=== PATIENT | female | born 1985 | race Caucasian/White ===

== ENCOUNTER 2018-12-01 11:29 | Inpatient (IN) ==
--- NOTE | 2018-12-01 11:57 | Emergency Department Note ---
Disposition Clinical Impression: Tylenol overdose Qualifiers: Qualified Code(s): T39.1X1A - Disposition: Admitted As Inpatient Condition: Good Time of Disposition: 14:01 General Adult HPI - General Chief complaint: ED Overdose Stated complaint: OD Time Seen by Provider: 12/01/18 11:32 Source: patient, family, EMS Mode of arrival: EMS Limitations: no limitations Nursing Notes Reviewed: Yes Vital Signs Reviewed: Yes - History of Present Illness HPI Narrative: 33F with Pmhx of PTSD, anxiety, depression, substance use disorder, that developed body aches, headache, SOB, CP, left sided abdominal pain, numbness in her hands about a week ago, one episode of syncope yesterday due to lightheadedness, and fevers and chills over the past two days. She also reports taking 2-3 325mg tylenol every 2-3 hours over the last two days for pain. She is also complaining of chronic dental pain on the bottom of her teeth. Her mother at bedside reports in the hallway that she has a problem taking too much xanax, and once the xanax was cut off, she would take neurontin the same way, until her mother took her neurontin prescription away a month ago. [place] workup and treatment. Pain Scale: 6 - Related Data Home Medications Medication Instructions Recorded Confirmed Acetaminophen [Tylenol] 650 mg PO Q8H PRN 12/01/18 12/01/18 Budesonide/Formoterol 160/4.5 2 puff IH BIDR 12/01/18 12/01/18 [Symbicort 160/4.5] Cetirizine HCl [24Hour Allergy] 10 mg PO DAILY 12/01/18 12/01/18 Fluticasone Propionate Nasal 2 spr NS DAILY PRN 12/01/18 12/01/18 [Flonase] Gabapentin [Neurontin] 800 mg PO QID 12/01/18 12/01/18 Ibuprofen [Ibu] 400 mg PO TID PRN 12/01/18 12/01/18 Montelukast [Singulair] 10 mg PO HS 12/01/18 12/01/18 Pantoprazole Sodium [Protonix] 40 mg PO DAILY 12/01/18 12/01/18 Allergies Allergy/AdvReac Type Severity Reaction Status Date / Time No Known Allergies Allergy Verified 01/19/16 13:19 Constitutional: Reports: fever, chills Eyes: Reports: eye pain ENT ED: Reports: throat pain, dental pain, congestion Cardiovascular: Reports: chest pain, syncope Respiratory: Reports: cough, dyspnea Gastrointestinal: Reports: abdominal pain, nausea, diarrhea. Denies: vomiting, constipation Musculoskeletal: Reports: back pain, neck pain Integumentary: Reports: rash, abrasion Neurological: Reports: headache, weakness, numbness, paresthesias Psychiatric: Reports: anxiety, depression Endocrine: Reports: fatigue Past Medical History - Past Medical History Attestation: Yes The following information was validated with the patient. Medical history: Reports: TIA Psychiatric history: Reports: anxiety, depression, PTSD - Social History Smoking Status: Current every day smoker Alcohol use: Reports: none Drug use: Reports: marijuana Physical Exam - General Limitations: no limitations General appearance: alert, lethargic - Head Head exam: atraumatic, normocephalic - Eye Eye exam: Present: normal appearance, PERRL, EOMI. Absent: scleral icterus, conjunctival injection - ENT ENT exam: mucous membranes moist - Neck Neck exam: Present: normal inspection, full ROM, trachea midline. Absent: lymp hadenopathy - Chest Chest inspection: Present: normal inspection, symmetric chest wall rise - Respiratory Respiratory exam: Present: normal lung sounds bilaterally. Absent: respiratory distress, wheezes - Cardiovascular Cardiovascular exam: Present: regular rate, normal rhythm - Abdominal Exam Abdominal exam: Present: soft, tenderness Abdominal tenderness: Present: LUQ, LLQ, epigastrium - Extremities Exam Extremities exam: Present: normal inspection, full ROM. Absent: pedal edema - Psychiatric Psychiatric exam: Present: depressed, flat affect - Skin Skin exam: Present: warm, dry, other (multiple small abrasions present diffusely over her extremities, several linear scars present that are well healed) Course Vital Signs Temperature 98.5 F 12/01/18 11:39 Pulse Rate 64 12/01/18 11:39 Respiratory Rate 14 12/01/18 11:39 Blood Pressure 139/88 12/01/18 11:39 O2 Sat by Pulse Oximetry 100 12/01/18 11:39 Temperature 98.2 F 12/01/18 19:13 Pulse Rate 79 12/01/18 19:13 Respiratory Rate 15 12/01/18 19:13 Blood Pressure 121/77 12/01/18 19:13 O2 Sat by Pulse Oximetry 99 12/01/18 20:56 Oxygen Delivery Oxygen Delivery Room Air Medical Decision Making - MDM Narrative Medical decision making narrative: 33F with concern for overall body aches, fevers/chills, headache, and large tylenol ingestion over the past two days. Mother reports hx of substance use disorder and concern for her over-all well being. Will consult poison control, obtain tylenol/acetaminophen/salicylate level. 1202: Spoke with Sabina from Poison Control and they recommended getting a tylenol level and LFTs and that if she has any tylenol level that we may have to treat if she cannot come up with a timeline. 1345: Labs back and speaking with Sabina from poison control and she reports that because her level is 40 that they would initiated treatment with NAC for the next 21 hours. They are faxing the treatment protocol but she reports that 1-2 hours before the 3rd bag is done to repeat the LFTs and tylenol level and if normal, can stop NAC at that point. Will initiate treatment and admit to hosptialist. Pt was admitted to hospitalist, Dr. Wiley, who agreed to accept the patient to her service. Pt was stable at time of disposition. - Medical Records Medical records reviewed: Yes I reviewed the patient's medical records. - Lab Data Lab results reviewed: Yes I reviewed the patient's lab results. Result diagrams: 12/01/18 11:59 12/01/18 11:59 Lab Results 12/01/18 12/01/18 12/01/18 Range/Units 11:59 11:59 11:59 WBC 8.0 (4.3-11.1) K/mcL RBC 4.29 (3.82-4.97) M/mcL Hgb 12.4 (11.5-15.4) g/dL Hct 36.0 (35.3-44.9) % MCV 83.9 (83.0-100.0) fL MCH 28.9 (28.0-33.3) pg MCHC 34.4 (31.6-35.5) g/dL RDW 12.1 (11.5-14.5) % Plt Count 329 (140-400) K/mcL MPV 10.3 (9.4-12.4) fL Immature Gran % 0.3 (0-4) % Seg Neutrophils % 52.7 % Lymphocytes % 34.0 % Monocytes % 8.9 % Eosinophils % 3.1 % Basophils % 1.0 % Neutrophils # 4.2 (1.6-8.9) K/mcL Lymphocytes # 2.7 (0.6-4.6) K/mcL Monocytes # 0.7 (0.0-1.3) K/mcL Eosinophils # 0.3 (0.0-0.6) K/mcL Basophils # 0.1 (0.0-0.2) K/mcL Sodium 137 (136-145) mEq/L Potassium 3.3 L (3.5-5.1) mEq/L Chloride 110 H (98-107) mEq/L Carbon Dioxide 22 L (23-29) mEq/L BUN 9 (6-20) mg/dL Creatinine 0.70 (0.60-1.20) mg/dL Est GFR ( Amer) > 60 (> 60) Est GFR (Non-Af Amer) > 60 (> 60) BUN/Creatinine Ratio 13 (6-26) Glucose 103 (70-105) mg/dL Calculated Osmolality 283 (280-300) Lactic Acid 1.3 (0.5-2.2) mmol/L Calcium 8.6 (8.6-10.3) mg/dL Total Bilirubin 0.5 (0.3-1.0) mg/dL Direct Bilirubin 0.1 (0.0-0.2) mg/dL Indirect Bilirubin 0.4 (0.0-1.2) mg/dL AST 11 L (13-39) Units/L ALT 5 L (7-52) Units/L Alkaline Phosphatase 56 (34-104) Units/L Serum Total Protein 5.8 L (6.4-8.9) g/dL Albumin 3.8 (3.5-5.7) g/dL Globulin 2.0 L (2.4-3.5) g/dL Albumin/Globulin Ratio 1.9 (1.1-2.2) Urine Color (Yellow) Urine Clarity (Clear) Urine pH (5.0-8.0) pH Units Ur Specific Marion (1.010-1.025) Urine Protein (Neg-Trace) mg/dL Urine Glucose (UA) (Normal) mg/dL Urine Ketones (Negative) mg/dL Urine Blood (Negative) Urine Nitrite (Negative) Urine Bilirubin (Negative) Urine Urobilinogen (Normal) mg/dL Ur Leukocyte Esterase (Negative) Urine Test (Negative) Salicylates < 2.5 L (15.0-30.0) mg/dL Urine Opiates Screen (Hlrzxw=278) ng/mL Ur Buprenorphine Scrn (Cutoff=5) ng/mL Acetaminophen 40 H (10-20) mcg/mL Ur Barbiturates Screen (Dbvfql=578) ng/mL Ur Phencyclidine Scrn (Cutoff=25) ng/mL Ur Amphetamines Screen (Nbzofb=9391) ng/mL U Benzodiazepines Scrn (Tkdhak=766) ng/mL Urine Cocaine Screen (Cutoff= 300) ng/mL U Marijuana (THC) Screen (Cutoff = 50) ng/mL Ur Drug Screen Interp Ethyl Alcohol < 10 (Less than 10) mg/dL 12/01/18 12/01/18 12/01/18 Range/Units 14:25 14:25 14:25 WBC (4.3-11.1) K/mcL RBC (3.82-4.97) M/mcL Hgb (11.5-15.4) g/dL Hct (35.3-44.9) % MCV (83.0-100.0) fL MCH (28.0-33.3) pg MCHC (31.6-35.5) g/dL RDW (11.5-14.5) % Plt Count (140-400) K/mcL MPV (9.4-12.4) fL Immature Gran % (0-4) % Seg Neutrophils % % Lymphocytes % % Monocytes % % Eosinophils % % Basophils % % Neutrophils # (1.6-8.9) K/mcL Lymphocytes # (0.6-4.6) K/mcL Monocytes # (0.0-1.3) K/mcL Eosinophils # (0.0-0.6) K/mcL Basophils # (0.0-0.2) K/mcL Sodium (136-145) mEq/L Potassium (3.5-5.1) mEq/L Chloride (98-107) mEq/L Carbon Dioxide (23-29) mEq/L BUN (6-20) mg/dL Creatinine (0.60-1.20) mg/dL Est GFR ( Amer) (> 60) Est GFR (Non-Af Amer) (> 60) BUN/Creatinine Ratio (6-26) Glucose (70-105) mg/dL Calculated Osmolality (280-300) Lactic Acid (0.5-2.2) mmol/L Calcium (8.6-10.3) mg/dL Total Bilirubin (0.3-1.0) mg/dL Direct Bilirubin (0.0-0.2) mg/dL Indirect Bilirubin (0.0-1.2) mg/dL AST (13-39) Units/L ALT (7-52) Units/L Alkaline Phosphatase (34-104) Units/L Serum Total Protein (6.4-8.9) g/dL Albumin (3.5-5.7) g/dL Globulin (2.4-3.5) g/dL Albumin/Globulin Ratio (1.1-2.2) Urine Color Yellow (Yellow) Urine Clarity Clear (Clear) Urine pH 6.0 (5.0-8.0) pH Units Ur Specific Marion > 1.030 H (1.010-1.025) Urine Protein Negative (Neg-Trace) mg/dL Urine Glucose (UA) Normal (Normal) mg/dL Urine Ketones Trace H (Negative) mg/dL Urine Blood Negative (Negative) Urine Nitrite Negative (Negative) Urine Bilirubin Negative (Negative) Urine Urobilinogen Normal (Normal) mg/dL Ur Leukocyte Esterase Negative (Negative) Urine Test Negative (Negative) Salicylates (15.0-30.0) mg/dL Urine Opiates Screen Negative (Xxbzak=338) ng/mL Ur Buprenorphine Scrn Positive H (Cutoff=5) ng/mL Acetaminophen (10-20) mcg/mL Ur Barbiturates Screen Negative (Dpwdec=720) ng/mL Ur Phencyclidine Scrn Negative (Cutoff=25) ng/mL Ur Amphetamines Screen Positive H (Ianttl=4420) ng/mL U Benzodiazepines Scrn Negative (Suvfsn=215) ng/mL Urine Cocaine Screen Negative (Cutoff= 300) ng/mL U Marijuana (THC) Screen Positive H (Cutoff = 50) ng/mL Ur Drug Screen Interp See Below Ethyl Alcohol (Less than 10) mg/dL - EKG Data EKG #1 EKG attestation: Yes I reviewed and interpreted this EKG. EKG results narrative: Heart rate 61, rhythm sinus, axis normal. Intervals within normal limits. she meets criteria for LVH. There is no ST segment elevation or depression. There is no old EKG available for comparison.
[2018-12-01] MEDS ORDERED: 0.9 % Sodium Chloride 1,000 ML IVC ONE (12:01)
[2018-12-01 12:13] LABS: Basophils # 0.1 K/mcL (0.0-0.2); Eosinophils # 0.3 K/mcL (0.0-0.6); Eosinophils % 3.1 %; Hemoglobin 12.4 g/dL (11.5-15.4); Immature Granulocytes % 0.3 % (0-4); Lymphocytes # 2.7 K/mcL (0.6-4.6); Mean Corpuscular HGB Conc 34.4 g/dL (31.6-35.5); Mean Corpuscular Hemoglobin 28.9 pg (28.0-33.3); Mean Corpuscular Volume 83.9 fL (83.0-100.0); Mean Platelet Volume 10.3 fL (9.4-12.4); Monocytes # 0.7 K/mcL (0.0-1.3); Monocytes % 8.9 %; Neutrophils # 4.2 K/mcL (1.6-8.9); Platelet Count 329 K/mcL (140-400); Red Blood Count 4.29 M/mcL (3.82-4.97); Red Cell Distribution Width 12.1 % (11.5-14.5); Segmented Neutrophils % 52.7 %
[2018-12-01 12:45] LABS: Acetaminophen 40 mcg/mL (10-20); Alanine Aminotransferase 5 Units/L (7-52); Albumin 3.8 g/dL (3.5-5.7); Albumin/Globulin Ratio 1.9 (1.1-2.2); Alkaline Phosphatase 56 Units/L (34-104); Aspartate Amino Transferase 11 Units/L (13-39); BUN/Creatinine Ratio 13 (6-26); Bilirubin,Direct 0.1 mg/dL (0.0-0.2); Bilirubin,Indirect 0.4 mg/dL (0.0-1.2); Bilirubin,Total 0.5 mg/dL (0.3-1.0); Blood Urea Nitrogen 9 mg/dL (6-20); Calcium 8.6 mg/dL (8.6-10.3); Carbon Dioxide 22 mEq/L (23-29); Chloride 110 mEq/L (98-107); Ethanol < 10 mg/dL (Less than 10); Glucose 103 mg/dL (70-105); Osmolality,Calculated 283 (280-300); Potassium 3.3 mEq/L (3.5-5.1); Salicylate < 2.5 mg/dL (15.0-30.0); Sodium 137 mEq/L (136-145); Total Protein 5.8 g/dL (6.4-8.9); eGFR For African Americans > 60 (> 60); eGFR For Non-African Americans > 60 (> 60)
[2018-12-01] MEDS ORDERED: D5 IVC ONE ×3 (13:55→19:15)
[2018-12-01] MEDS ORDERED: ACETYLCYSTEINE IVC ONE ×3 (13:55→19:15)
[2018-12-01] MEDS ORDERED: WATER IVC ONE ×3 (13:55→19:15)
--- NOTE | 2018-12-01 14:36 | Emergency Department Note ---
Disposition Clinical Impression: Tylenol overdose Qualifiers: Encounter type: initial encounter Injury intent: accidental or unintentional Qualified Code(s): T39.1X1A - Poisoning by 4-Aminophenol derivatives, accidental (unintentional), initial encounter Disposition: Admitted As Inpatient Condition: Good Referrals: NONE,PCP [Primary Care Provider] - Forms: ED Satisfaction Letter Time of Disposition: 14:57 General Adult HPI - General Chief complaint: ED Overdose Stated complaint: OD Time Seen by Provider: 12/01/18 11:32 Source: patient, family, EMS Mode of arrival: EMS Limitations: no limitations - History of Present Illness Pain Scale: 6 - Related Data Home Medications Medication Instructions Recorded Confirmed Acetaminophen [Tylenol] 650 mg PO Q8H PRN 12/01/18 12/01/18 Budesonide/Formoterol 160/4.5 2 puff IH BIDR 12/01/18 12/01/18 [Symbicort 160/4.5] Cetirizine HCl [24Hour Allergy] 10 mg PO DAILY 12/01/18 12/01/18 Fluticasone Propionate Nasal 2 spr NS DAILY PRN 12/01/18 12/01/18 [Flonase] Gabapentin [Neurontin] 800 mg PO QID 12/01/18 12/01/18 Ibuprofen [Ibu] 400 mg PO TID PRN 12/01/18 12/01/18 Montelukast [Singulair] 10 mg PO HS 12/01/18 12/01/18 Pantoprazole Sodium [Protonix] 40 mg PO DAILY 12/01/18 12/01/18 Allergies Allergy/AdvReac Type Severity Reaction Status Date / Time No Known Allergies Allergy Verified 01/19/16 13:19 Constitutional: Reports: fever, chills Eyes: Reports: eye pain ENT ED: Reports: throat pain, dental pain, congestion Cardiovascular: Reports: chest pain, syncope Respiratory: Reports: cough, dyspnea Gastrointestinal: Reports: abdominal pain, nausea, diarrhea. Denies: vomiting, constipation Musculoskeletal: Reports: back pain, neck pain Integumentary: Reports: rash, abrasion Neurological: Reports: headache, weakness, numbness, paresthesias Psychiatric: Reports: anxiety, depression Endocrine: Reports: fatigue Past Medical History - Past Medical History Medical history: Reports: TIA Psychiatric history: Reports: anxiety, depression, PTSD - Social History Smoking Status: Current every day smoker Alcohol use: Reports: none Drug use: Reports: marijuana Physical Exam - General Limitations: no limitations General appearance: alert, lethargic Course Vital Signs Temperature 98.5 F 12/01/18 11:39 Pulse Rate 64 12/01/18 11:39 Respiratory Rate 14 12/01/18 11:39 Blood Pressure 139/88 12/01/18 11:39 O2 Sat by Pulse Oximetry 100 12/01/18 11:39 Temperature 98.5 F 12/01/18 11:39 Pulse Rate 86 12/01/18 11:54 Respiratory Rate 14 12/01/18 11:39 Blood Pressure 139/88 12/01/18 11:54 O2 Sat by Pulse Oximetry 100 12/01/18 11:39 Oxygen Delivery Oxygen Delivery Room Air Medical Decision Making - Lab Data Result diagrams: 12/01/18 11:59 12/01/18 11:59 Lab Results 12/01/18 12/01/18 12/01/18 Range/Units 11:59 11:59 11:59 WBC 8.0 (4.3-11.1) K/mcL RBC 4.29 (3.82-4.97) M/mcL Hgb 12.4 (11.5-15.4) g/dL Hct 36.0 (35.3-44.9) % MCV 83.9 (83.0-100.0) fL MCH 28.9 (28.0-33.3) pg MCHC 34.4 (31.6-35.5) g/dL RDW 12.1 (11.5-14.5) % Plt Count 329 (140-400) K/mcL MPV 10.3 (9.4-12.4) fL Immature Gran % 0.3 (0-4) % Seg Neutrophils % 52.7 % Lymphocytes % 34.0 % Monocytes % 8.9 % Eosinophils % 3.1 % Basophils % 1.0 % Neutrophils # 4.2 (1.6-8.9) K/mcL Lymphocytes # 2.7 (0.6-4.6) K/mcL Monocytes # 0.7 (0.0-1.3) K/mcL Eosinophils # 0.3 (0.0-0.6) K/mcL Basophils # 0.1 (0.0-0.2) K/mcL Sodium 137 (136-145) mEq/L Potassium 3.3 L (3.5-5.1) mEq/L Chloride 110 H (98-107) mEq/L Carbon Dioxide 22 L (23-29) mEq/L BUN 9 (6-20) mg/dL Creatinine 0.70 (0.60-1.20) mg/dL Est GFR ( Amer) > 60 (> 60) Est GFR (Non-Af Amer) > 60 (> 60) BUN/Creatinine Ratio 13 (6-26) Glucose 103 (70-105) mg/dL Calculated Osmolality 283 (280-300) Lactic Acid 1.3 (0.5-2.2) mmol/L Calcium 8.6 (8.6-10.3) mg/dL Total Bilirubin 0.5 (0.3-1.0) mg/dL Direct Bilirubin 0.1 (0.0-0.2) mg/dL Indirect Bilirubin 0.4 (0.0-1.2) mg/dL AST 11 L (13-39) Units/L ALT 5 L (7-52) Units/L Alkaline Phosphatase 56 (34-104) Units/L Serum Total Protein 5.8 L (6.4-8.9) g/dL Albumin 3.8 (3.5-5.7) g/dL Globulin 2.0 L (2.4-3.5) g/dL Albumin/Globulin Ratio 1.9 (1.1-2.2) Salicylates < 2.5 L (15.0-30.0) mg/dL Acetaminophen 40 H (10-20) mcg/mL Ethyl Alcohol < 10 (Less than 10) mg/dL Attestation Statement - Attestation Attestation: I reviewed the residents documentation and agree with the residents assessment and plan of care. I have personally had face to face time with the patient. (Brief History, Brief Exam, and MDM) I personally supervised and was present for the mckeon/critical portions of the following procedures completed by the resident: EKG 33 year old eliud has othewrise been feeling ill for the past few days and self treating with tylneol 325mg every two hours for the past two days. It appears that her tylneol level is 40. WE have discussed case with ed padron and they recommend admission for NAC therapy. LFTs are normal.
[2018-12-01 14:38] LABS: Bilirubin,Urine Negative (Negative); Blood,Urine Negative (Negative); Clarity,Urine Clear (Clear); Color,Urine Yellow (Yellow); Glucose,Urine (UA) Normal (Normal); Ketones,Urine Trace mg/dL (Negative); Leukocyte Esterase,Urine Negative (Negative); Nitrite,Urine Negative (Negative); Protein,Urine Negative (Neg-Trace); Specific Gravity,Urine > 1.030 (1.010-1.025); Urobilinogen,Urine Normal (Normal)
[2018-12-01 14:51] LABS: Amphetamine Screen,Urine Positive ng/mL (Cutoff=1000); Barbiturate Screen,Urine Negative ng/mL (Cutoff=200); Benzodiazepines Screen,Urine Negative ng/mL (Cutoff=200); Cannabinoid Screen,Urine Positive ng/mL (Cutoff = 50); Cocaine Screen,Urine Negative ng/mL (Cutoff= 300); Opiate Screen,Urine Negative ng/mL (Cutoff=300); Phencyclidine Screen,Urine Negative ng/mL (Cutoff=25)
--- NOTE | 2018-12-01 15:45 | Internal Med History&Physical ---
<Darlene Duncan - Last Filed: 12/01/18 16:35> Date of Encounter: 12/01/18 Internal Medicine - H&P: HPI History of present illness: Ms. Gomez is a 33 year old female Past Med Surg Social Fam HX - Family History Father Hx Family Endocrine Disorder: (DM) Internal Medicine - H&P: Meds Acetaminophen [Tylenol] 650 mg PO Q8H PRN 12/01/18 [History] Budesonide/Formoterol 160/4.5 [Symbicort 160/4.5] 2 puff IH BIDR 12/01/18 [History] Cetirizine HCl [24Hour Allergy] 10 mg PO DAILY 12/01/18 [History] Fluticasone Propionate Nasal [Flonase] 2 spr NS DAILY PRN 12/01/18 [History] Gabapentin [Neurontin] 800 mg PO QID 12/01/18 [History] Ibuprofen [Ibu] 400 mg PO TID PRN 12/01/18 [History] Montelukast [Singulair] 10 mg PO HS 12/01/18 [History] Pantoprazole Sodium [Protonix] 40 mg PO DAILY 12/01/18 [History] Allergy/AdvReac Type Severity Reaction Status Date / Time No Known Allergies Allergy Verified 01/19/16 13:19 All Systems PM: A 10-system review of systems was performed and is negative for pertinent findings except as documented above in the HPI. - Constitutional Vitals: Temp Pulse Resp BP Pulse Ox 98.4 F 74 16 135/88 99 12/01/18 15:24 12/01/18 15:24 12/01/18 15:24 12/01/18 15:24 12/01/18 15:24 Internal Med - H&P Results - Labs CBC & Chem 7: 12/01/18 11:59 12/01/18 11:59 Labs: Short CBC 12/01/18 Range/Units 11:59 WBC 8.0 (4.3-11.1) K/mcL Hgb 12.4 (11.5-15.4) g/dL Hct 36.0 (35.3-44.9) % Plt Count 329 (140-400) K/mcL Neutrophils # 4.2 (1.6-8.9) K/mcL BMP 12/01/18 11:59 Sodium 137 Potassium 3.3 L Chloride 110 H Carbon Dioxide 22 L BUN 9 Creatinine 0.70 Glucose 103 Calcium 8.6 Liver Function 12/01/18 Range/Units 11:59 Total Bilirubin 0.5 (0.3-1.0) mg/dL Direct Bilirubin 0.1 (0.0-0.2) mg/dL AST 11 L (13-39) Units/L ALT 5 L (7-52) Units/L Alkaline Phosphatase 56 (34-104) Units/L Albumin 3.8 (3.5-5.7) g/dL Urine 12/01/18 Range/Units 14:25 Urine Color Yellow (Yellow) Urine Clarity Clear (Clear) Urine pH 6.0 (5.0-8.0) pH Units Ur Specific [place] > 1.030 H (1.010-1.025) Urine Protein Negative (Neg-Trace) mg/dL Urine Glucose (UA) Normal (Normal) mg/dL - Time Spent With Patient Total time spent is greater than 50% in coordination of care (as documented) at patient's floor/unit and/or counseling patient: - Attending Attestation I examined this patient and my medical decision-making was reviewed with the Resident Physician. I agree with the documented findings, disposition and treatment plan as described except to the extent set forth below. 33 year old female presents after excessive ingestion of Tylenol followed by lethargy, n/v. She has been feeling ill and having pain and so was taking Tylenol every 2 hours for managing pain. She was on Xanax and gabapentin in the past which have since been DC'd by PCP. Pain tolerance may be higher than usual because of this. In the ED, APAP levels elevated at 40, LFTs not significatly elevated at this time. + amphetamines on UDS, possibly causing flu-like symptoms or maybe from bzd withdrawal on differentials. Started on NAC. 1) Tylenol toxicity 2) flu-like symptoms - Continue IV fluid hydration, NAC, monitor LFTs. <Burt Chavez - Last Filed: 12/01/18 21:08> Date of Encounter: 12/01/18 Time of Encounter: 17:47 Internal Medicine - H&P: HPI History of present illness: Ms. Gomez is a 33 year old female with a past medical history of PTSD, anxie ty, depression, and substance abuse disorder who presented to [facility], headache, chest pain, shortness of breath, abdominal pain. Patient reported that she had fevers for the last 2 days, and had been consuming a large amount of Tylenol to try to bring her fever down. She reports that over the course of 2 days, she had been taking Tylenol 325 mg every 2-3 hours in attempt to get her fever under control. She denies having any prior episodes to this. She was also complaining of chronic dental pain on the bottom of her teeth. Per ER report, patient has a history of taking too much Xanax. Once Xanax was cut off, she would take Neurontin in the same way, until her mother took away her Neurontin prescription approximately one month ago. Upon arrival, vital signs were within normal limits. Labs showed a low potassium of 3.3, AST 11, ALT of 5. Urine toxicology was positive for buprenorphine, amphetamine, and marijuana. Acetaminophen level was 40. Poison control was contacted from the emergency department, who recommended treatment with N-acetylcysteine for the next 21 hours. Poison control faxed the treatment protocol; 1-2 hours before third bag is done, they advise repeating the LFTs and Tylenol levels; if normal, N-acetylcysteine can stop. During my assessment, patient appeared very lethargic and mildly distressed. She states that she had been running fevers for approximately 2 days, and that she was taking Tylenol every 2 hours to get her fever under control. She denies any prior episodes like this. She reports in past medical history of PTSD, anxiety, and depression. Her family history is significant for psoriasis and diabetes mellitus. She admits to smoking less than 1 pack per day since the age of 14. She denies use of alcohol, admits to the use of marijuana occasionally. She states that the last time she smoked was yesterday. She reports fever, chills, chest pain, one episode of syncope, pain in the left lower quadrant, nausea, headache, weakness, loss of appetite, malaise, and a darkened appearance to her urine. She denies vomiting, yellowing of the eyes or skin, right upper quadrant pain, changes in bowel habits, anxiety, or depression. No further complaints at this time. On physical exam, she appears distressed and lethargic. Past Med Surg Social Fam HX - Past Medical History Medical history: TIA Psychiatric history: anxiety, depression, PTSD - Past Surgical History Additional surgical history: Right shoulder Sx, Lumpectomy Right breast. - Social History Smoking Status: Current every day smoker Alcohol use: none Drug use: marijuana All Systems PM: A 10-system review of systems was performed and is negative for pertinent findings except as documented above in the HPI. - Constitutional Vitals: Temp Pulse Resp BP Pulse Ox 98.4 F 74 16 135/88 99 12/01/18 15:24 12/01/18 15:24 12/01/18 15:24 12/01/18 15:24 12/01/18 15:24 Exam: General: Conversant, lethargic, mild distress HEENT: Dry mucous membranes, no sign of scleral icterus Respiratory: CTAB. No accessory muscle use, wheezes, rales, or rhonchi Cardiovascular: RRR, +S1, +S2; no murmurs, rubs, gallops Abdomen: Soft, tenderness to palpation in the left upper and left lower quadrant, no rebound or guarding Extremities: warm, radial pulses palpable and symmetrical; multiple scabs present on the anterior shins and forearms Psychiatric: Flat affect, lethargic Skin: Multiple scabs present on the skin of the upper and lower extremities Internal Med - H&P Results - Labs CBC & Chem 7: 12/01/18 11:59 12/01/18 11:59 Labs: Short CBC 12/01/18 Range/Units 11:59 WBC 8.0 (4.3-11.1) K/mcL Hgb 12.4 (11.5-15.4) g/dL Hct 36.0 (35.3-44.9) % Plt Count 329 (140-400) K/mcL Neutrophils # 4.2 (1.6-8.9) K/mcL BMP 12/01/18 11:59 Sodium 137 Potassium 3.3 L Chloride 110 H Carbon Dioxide 22 L BUN 9 Creatinine 0.70 Glucose 103 Calcium 8.6 Liver Function 12/01/18 Range/Units 11:59 Total Bilirubin 0.5 (0.3-1.0) mg/dL Direct Bilirubin 0.1 (0.0-0.2) mg/dL AST 11 L (13-39) Units/L ALT 5 L (7-52) Units/L Alkaline Phosphatase 56 (34-104) Units/L Albumin 3.8 (3.5-5.7) g/dL Urine 12/01/18 Range/Units 14:25 Urine Color Yellow (Yellow) Urine Clarity Clear (Clear) Urine pH 6.0 (5.0-8.0) pH Units Ur Specific [place] > 1.030 H (1.010-1.025) Urine Protein Negative (Neg-Trace) mg/dL Urine Glucose (UA) Normal (Normal) mg/dL - Assessment and Plan (1) Acetaminophen overdose Current Visit: Yes Status: Acute Assessment and plan: Assessment- - Presented after taking [id number] Tylenol every 2-3 hours for the last 2 days for fevers - Presented with malaise, nausea, and abdominal pain - Labs demonstrated AST 11, ALT 5 - Urine toxicology showed acetaminophen level of 40, positive buprenorphine, amphetamines, and benzodiazepines - Poison control was contacted from the emergency department; treatment with N- acetylcysteine was initiated Plan- - Per the recommendations of poison control, 2 doses of N-acetylcysteine are to be administered; before third dose is administered, will repeat LFTs and acetaminophen levels; if within normal limits, third dose of N-acetylcysteine can be held - Hydration with IV normal saline Qualifiers: Qualified Code(s): T39.1X1A - Poisoning by 4-Aminophenol derivatives, accidental (unintentional), initial encounter (2) Polysubstance abuse Current Visit: Yes Status: Acute Assessment and plan: - Patient has documented history of polysubstance abuse - UDS was positive for buprenorphine, amphetamines, and THC - Social work consult (3) Hypokalemia Current Visit: Yes Status: Acute Assessment and plan: - Up showed low potassium of 3.3 - Will order replacement (4) Asthma Current Visit: Yes Status: Acute Assessment and plan: - Continue Symbicort inhaler and Singulair Qualifiers: Qualified Code(s): J45.909 - Unspecified asthma, uncomplicated (5) DVT prophylaxis Current Visit: Yes Status: Acute Assessment and plan: - EPCDs - Time Spent With Patient Total time spent is greater than 50% in coordination of care (as documented) at patient's floor/unit and/or counseling patient:
--- NOTE | 2018-12-01 15:52 | Event Note ---
<Gould,Loc T - Last Filed: 12/01/18 16:38> Date of Encounter: 12/01/18 Time of Encounter: 15:45 CC: Fever x 2 days with malaise and abd pain HPI: Pt is a 33 yo F with a h/o asthma, psoriasis, chronic pain syndrome, anxiety, depression, PTSD who was seen at the 3B floor and reported that she was experiencing some subjective fevers that she has been taking OTC Tylenol for q 2hrs for 2 days and has denied any prior Tylenol overdose ever in the past. She reported that two days ago she also had some abd pain located in the left lower abdominal area along with some chest pain and a syncopal episode yesterday. She stated that after recovering from her syncopal episode, she felt nauseated and dehydrated but forced herself to eat a peanut butter and jelly sandwich which she was able to keep down, as she reported she had not eaten in days. She denies any yellowing of her skin. She states she is currently having a OTT. ROS: Head: Reports headache Eyes: Declines scleral icterus, changes in vision Ears: Denies changes in hearing Mouth: Mucus membranes dry Neck: Denies dysphagia Heart: Denies any palpitations, reports chest pain Lungs: Denies any shortness of breath Abd: Reports abdominal pain : Denies any urinary difficulties Neuro: Denies changes in mood, reports anxiety, depression and PTSD Ext: Denies weakness PMHx: asthma, psoriasis, chronic pain syndrome, anxiety, depression, PTSD Meds: APAP 650mg PO q8hrs, Symbicort inhaler, Cetirizine 10mg PO Qday, Flonase Nasal [place], Neurontin 800mg PO QID, Ibuprofen 400mg PO TID, Singulair 10mg PO Qday, Protonix 40mg PO Qday Allergies: NKDA PSHx: Rt shoulder (08/2011), tonsillectomy and adenoidectomy, Rt breast lumpectomy FHx: psoriasis, DM, heart disease SHx: Current smoker 1ppd x 19 yrs, no alcoholic beverages, admits to smoking marijuana (last used yesterday) VS: T 98.5, BP 124/86, HR 59, RR 16, SpO2 98% RA Labs: K 3.3, AST 11, ALT 5, Alk Phos 56, Total protein 5.8, albumin 3.8 UDS: + salicylates (<2.5), buprenorphine, acetaminophen (40), amphetamine, marijuana UA: + trace ketones PE: General: Patient was found laying awake in bed in no apparent distress. She remains alert and cooperative with the exam and answers all questions appropriately. HEENT: Normocephalic, negative scleral icterus, atraumatic, neck supple, trachea midline Heart: Bradycardic without any murmurs, rubs or gallops Lungs: CTA bilaterally in all anterior lung ho, without wheezing or rhonchi Abd: Normal active bowel sounds x 4 quadrants, soft, non distended, mildly tender to palpation of the LLQ of the abdomen, no guarding Ext: No LE edema A/P: 1/ APAP overdose - Continue N Acetylcysteine - 3,000 mg @ 125mls/hr, 6,100 mg in dextrose @64.8mls/hr, and 9,100mg in dextrose @ 250mls/hr - Will trend and monitor APAP levels - Will continue IVNS fluid hydration - Poison control was contacted at the ED - Will consult social worker school - will await further recommendations - Will consult psychiatry - will await further recommendations 2/ Hypokalemia - Replete with 40mEq of KCl with IVNS fluid hydration 3/ Asthma - Will continue her home Symbicort inhaler, Flonase nasal spray and Singulair 4/ H/o polysubstance use disorder - Pt's UDS positive for: salicylates (<2.5), buprenorphine, acetaminophen (40), amphetamine, marijuana - Will consult psychiatry - will await further recommendations <Darlene Duncan - Last Filed: 12/01/18 18:34> Date of Encounter: 12/01/18 I examined this patient and my medical decision-making was reviewed with the Resident Physician and medical student. I agree with the documented findings, disposition and treatment plan as described except to the extent set forth below. Incidental Tylenol ingestion after having Flu-like symptoms. VSS, monitor LFTs, continue NAC. See progress note for details.
[2018-12-01] MEDS ORDERED: Naloxone 0.4 MG/ML INJ IVP PRN (15:55)
[2018-12-01] MEDS ORDERED: Ondansetron 4 MG/2 ML VIAL IVP PRN (15:55)
[2018-12-01 19:11] LABS: Adenovirus Not Detected (Not Detect); Bordetella Pertussis Not Detected (Not Detect); Chlamydophila pneumoniae Not Detected (Not Detect); Coronavirus 229E Not Detected (Not Detect); Coronavirus HKU1 Not Detected (Not Detect); Coronavirus NL63 Not Detected (Not Detect); Coronavirus OC43 Not Detected (Not Detect); Human Metapneumovirus Not Detected (Not Detect); Human Rhinovirus/Enterovirus Not Detected (Not Detect); Influenza A Subtype 2009 H1 Not Detected (Not Detect); Influenza A Untypeable Not Detected (Not Detect); Influenza B Not Detected (Not Detect); Mycoplasma pneumoniae Not Detected (Not Detect); Parainfluenza Virus 1 Not Detected (Not Detect); Parainfluenza Virus 2 Not Detected (Not Detect); Parainfluenza Virus 3 Not Detected (Not Detect); Parainfluenza Virus 4 Not Detected (Not Detect); Respiratory Syncytial Virus Not Detected (Not Detect)
[2018-12-01] MEDS ORDERED: *HR* Promethazine 25 MG/ML VIAL IVP PRN (19:57)
--- NOTE | 2018-12-01 20:20 | Electrocardiograph Report ---
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
[2018-12-01 21:48] LABS: Albumin 3.7 g/dL (3.5-5.7); Albumin/Globulin Ratio 2.1 (1.1-2.2); Bilirubin,Direct 0.2 mg/dL (0.0-0.2); Bilirubin,Indirect 0.7 mg/dL (0.0-1.2); Bilirubin,Total 0.9 mg/dL (0.3-1.0); Globulin 1.8 g/dL (2.4-3.5); Total Protein 5.5 g/dL (6.4-8.9)
[2018-12-01] MEDS: 0.9 % Sodium Chloride 1,000 ML IVC SCH (22:45)
[2018-12-01] MEDS: *HR* Heparin 5,000 UNIT/ML VIAL SQ SCH (22:49)
[2018-12-02 04:37] LABS: Basophils # 0.1 K/mcL (0.0-0.2); Basophils % 0.7 %; Eosinophils # 0.2 K/mcL (0.0-0.6); Eosinophils % 2.2 %; Hematocrit 33.3 % (35.3-44.9); Hemoglobin 11.6 g/dL (11.5-15.4); Immature Granulocytes % 0.3 % (0-4); Lymphocytes # 2.5 K/mcL (0.6-4.6); Lymphocytes % 26.2 %; Mean Corpuscular HGB Conc 34.8 g/dL (31.6-35.5); Mean Corpuscular Volume 83.3 fL (83.0-100.0); Mean Platelet Volume 10.7 fL (9.4-12.4); Monocytes # 0.6 K/mcL (0.0-1.3); Monocytes % 6.6 %; Neutrophils # 6.2 K/mcL (1.6-8.9); Platelet Count 292 K/mcL (140-400); Red Cell Distribution Width 11.9 % (11.5-14.5); White Blood Count 9.6 K/mcL (4.3-11.1)
[2018-12-02 04:58] LABS: BUN/Creatinine Ratio 14 (6-26); Blood Urea Nitrogen 8 mg/dL (6-20); Calcium 7.9 mg/dL (8.6-10.3); Carbon Dioxide 19 mEq/L (23-29); Chloride 110 mEq/L (98-107); Glucose 87 mg/dL (70-105); Osmolality,Calculated 286 (280-300); Potassium 3.1 mEq/L (3.5-5.1); Sodium 139 mEq/L (136-145); eGFR For African Americans > 60 (> 60); eGFR For Non-African Americans > 60 (> 60)
[2018-12-02 05:00] LABS: Albumin 3.2 g/dL (3.5-5.7); Bilirubin,Direct 0.1 mg/dL (0.0-0.2); Bilirubin,Indirect 0.7 mg/dL (0.0-1.2); Bilirubin,Total 0.8 mg/dL (0.3-1.0); Globulin 1.6 g/dL (2.4-3.5); Total Protein 4.8 g/dL (6.4-8.9)
[2018-12-02] MEDS: *HR* Heparin 5,000 UNIT/ML VIAL SQ SCH ×2 (06:01→15:17)
[2018-12-02] MEDS: 0.9 % Sodium Chloride 1,000 ML IVC SCH ×2 (07:19→15:17)
--- NOTE | 2018-12-02 09:02 | Internal Med Progress Note ---
<Gould,Loc T - Last Filed: 12/02/18 14:27> Hospitalist Progress Note - Encounter Date of Encounter: 12/02/18 Time of Encounter: 08:20 - Subjective Interval History: Pt was seen laying asleep in bed this morning, but was cooperative and alert when awakened. She states that she was able to sleep on and off last night denying any current abdominal pain she came in with yesterday. She denied any nausea but did state she vomited once yesterday of what she stated look like "bile stuff". She currently denies any fevers, chills, jaundice, constipation, diarrhea, chest pain, shortness of breath or any pain anywhere. She has no c urrent questions or concerns at the moment. - Exam Vitals: Temp Pulse Resp BP Pulse Ox 98.6 F 67 16 110/64 97 12/02/18 06:36 12/02/18 06:36 12/02/18 06:36 12/02/18 06:36 12/02/18 06:36 Exam: General: Pt was found laying asleep in bed with the covers past her head this morning. She was alert and cooperative with the exam on awakening. She is no apparent distress and answers all questions appropriately. HEENT: Normocephalic, neck supple and trachea midline Heart: RRR, without any murmurs, rubs or gallops Lungs: CTA bilaterally without any wheezing or rhonchi Abd: Normal active bowel sounds x 4 quadrants, soft, non distended, non tender to palpation Ext: No LE edema - Assessment and Plan (1) Acetaminophen overdose Current Visit: Yes Status: Acute Assessment and Plan: - Pt was admitted for APAP overdose she stated was taking q2hrs x 2days for treatment of subjective fevers - admission APAP level of 40 - Serum APAP level down trending today at <10 with N-acetylcysteine treatment, AST improved to 18 from 11, and ALT now at 11 from 5 yesterday - No abd pain or tenderness on physical exam - Will continue to trend and monitor APAP levels - Pt's known history of polysubstance abuse - consulted psychiatry and social science instructor - awaiting further recommendations - Poison control was contacted on admission (2) Asthma Current Visit: Yes Status: Acute Assessment and Plan: - Known asthmatic with home med of Symbicort inhaler - Stable - as satting well at 97% on RA - Respiratory viral panel came back negative for any viral respiratory infection - Will continue to monitor for changes (3) Hypokalemia Current Visit: Yes Status: Acute Assessment and Plan: - Pt's admission K was 3.3 yesterday and continuing to down trend today at 3.1 - Currently repleting with 40mEq of KCL with IVNS hydration - Will continue to monitor and trend (4) Polysubstance abuse Current Visit: Yes Status: Acute Assessment and Plan: - H/o polysubstance abuse of benzos, opiates, marijuana, amphetamines and current smoker with psych h/o anxiety, depression and PTSD - Questionable as to the recent APAP overdose - therefore consulting social science instructor and psychiatry - awaiting further recommendations (5) DVT prophylaxis Current Visit: Yes Status: Acute Assessment and Plan: - Heparin 5,000 Units SQ q8hrs scheduled for DVT ppx - Time Spent with Patient Total time spent is greater than 50% in coordination of care (as documented) at patient's floor/unit and/or counseling patient: Internal Medicine: Result - Labs CBC & Chem 7: 12/02/18 03:54 12/02/18 03:54 Labs: Short CBC 12/01/18 12/02/18 Range/Units 11:59 03:54 WBC 8.0 9.6 (4.3-11.1) K/mcL Hgb 12.4 11.6 (11.5-15.4) g/dL Hct 36.0 33.3 L (35.3-44.9) % Plt Count 329 292 (140-400) K/mcL Neutrophils # 4.2 6.2 (1.6-8.9) K/mcL BMP 12/01/18 12/02/18 11:59 03:54 Sodium 137 139 Potassium 3.3 L 3.1 L Chloride 110 H 110 H Carbon Dioxide 22 L 19 L BUN 9 8 Creatinine 0.70 0.57 L Glucose 103 87 Calcium 8.6 7.9 L Liver Function 12/01/18 12/01/18 12/02/18 Range/Units 11:59 20:43 03:54 Total Bilirubin 0.5 0.9 0.8 (0.3-1.0) mg/dL Direct Bilirubin 0.1 0.2 0.1 (0.0-0.2) mg/dL AST 11 L 17 18 (13-39) Units/L ALT 5 L 10 11 (7-52) Units/L Alkaline Phosphatase 56 48 44 (34-104) Units/L Albumin 3.8 3.7 3.2 L (3.5-5.7) g/dL Urine 12/01/18 Range/Units 14:25 Urine Color Yellow (Yellow) Urine Clarity Clear (Clear) Urine pH 6.0 (5.0-8.0) pH Units Ur Specific [place] > 1.030 H (1.010-1.025) Urine Protein Negative (Neg-Trace) mg/dL Urine Glucose (UA) Normal (Normal) mg/dL Consult Discharge Plan - Plan Referrals: NONE,PCP [Primary Care Provider] - <Darlene Duncan - Last Filed: 12/02/18 18:47> Hospitalist Progress Note - Encounter Date of Encounter: 12/02/18 - Exam Vitals: Temp Pulse Resp BP Pulse Ox 98.6 F 70 16 106/68 99 12/02/18 15:35 12/02/18 15:35 12/02/18 15:35 12/02/18 15:35 12/02/18 15:35 - Time Spent with Patient Total time spent is greater than 50% in coordination of care (as documented) at patient's floor/unit and/or counseling patient: Internal Medicine: Result - Labs CBC & Chem 7: 12/02/18 03:54 12/02/18 03:54 Labs: Short CBC 12/02/18 Range/Units 03:54 WBC 9.6 (4.3-11.1) K/mcL Hgb 11.6 (11.5-15.4) g/dL Hct 33.3 L (35.3-44.9) % Plt Count 292 (140-400) K/mcL Neutrophils # 6.2 (1.6-8.9) K/mcL BMP 12/02/18 03:54 Sodium 139 Potassium 3.1 L Chloride 110 H Carbon Dioxide 19 L BUN 8 Creatinine 0.57 L Glucose 87 Calcium 7.9 L Liver Function 12/01/18 12/02/18 Range/Units 20:43 03:54 Total Bilirubin 0.9 0.8 (0.3-1.0) mg/dL Direct Bilirubin 0.2 0.1 (0.0-0.2) mg/dL AST 17 18 (13-39) Units/L ALT 10 11 (7-52) Units/L Alkaline Phosphatase 48 44 (34-104) Units/L Albumin 3.7 3.2 L (3.5-5.7) g/dL - Attending Attestation I examined this patient and my medical decision-making was reviewed with the Resident Physician and Medical Student. I agree with the documented findings, disposition and treatment plan as described except to the extent set forth below. Patient medically stable for discharge today, see discharge summary. <Gould,Loc T - Last Filed: 12/02/18 14:27> (1) Acetaminophen overdose Qualifiers: Qualified Code(s): T39.1X1A - Poisoning by 4-Aminophenol derivatives, accidental (unintentional), initial encounter (2) Asthma Qualifiers: Qualified Code(s): J45.909 - Unspecified asthma, uncomplicated
--- NOTE | 2018-12-02 09:26 | Consult Note ---
Date of Encounter: 12/02/18 Time of Encounter: 09:19 Assessment & Recommendation (1) PTSD (post-traumatic stress disorder) Current visit: Yes Status: Chronic Assessment & Recommendation: History of PTSD, anxiety and depression who presented to the hospital complaining of ongoing fever At presentation she reported taking 325 mg Tylenol frequently, denies taking medications for self-harm UDS is positive for elevated acetaminophen level also positive for buprenophine, benzodiazepine and marijuana She is not prescribed benzos or buprenorphine, outpatient and denies taking it She denies suicidal or homicidal ideation Denies taking any medications for her excited, depression or PTSD outpatient She is not interested in starting any medications at this time Does not meet criteria for inpatient psychiatric admission at this time, continue to medically treat her for acetaminophen intoxication History of Present Illness Requesting Physician: Darlene Duncan MD History of present illness: Ms. Gomez is a 33 year old female with past medical history of PTSD, anxiety, depression who presented to [facility] on 12/01/18 from the [facility] complaining of ongoing fever that she could not "break." She complained of myalgia and toothache at admission. Also reported fever has been ongoing for the past 3 days has been taking 325 mg Tylenol frequently, unable to discern how often but as the fever persisted she decided to present to the hospital. This morning she is resting in bed and complaining of toothache as well as myalgia. She is denying taking too much atenolol for suicidal attempt. She denies any previous suicidal ideation or homicidal ideation. She does report being admitted to psychiatric unit in 2009 but does not want to divulge as to why. Does state that she does not follow outpatient with psychiatrist nor does she take any medications for her PTSD, anxiety or depression. She does state that [facility] has given her numerous medications but she does not know what they are for nor does she take any of those medications. She is denying alcohol use does report smoking 1 pack per day since age 14. Also denies taking any drugs such as heroin, benzos or cocaine. 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 Denies any psychiatric illnesses in her family members. CC: Darlene Duncan MD Past Med Surg Social Fam HX - Past Medical History Medical history: TIA - Social History Smoking Status: Current every day smoker Alcohol use: none Drug use: marijuana - Family History Father Hx Family Endocrine Disorder: (DM) Medications & Allergies Acetaminophen [Tylenol] 650 mg PO Q8H PRN 12/01/18 [History] Budesonide/Formoterol 160/4.5 [Symbicort 160/4.5] 2 puff IH BIDR 12/01/18 [History] Cetirizine HCl [24Hour Allergy] 10 mg PO DAILY 12/01/18 [History] Fluticasone Propionate Nasal [Flonase] 2 spr NS DAILY PRN 12/01/18 [History] Gabapentin [Neurontin] 800 mg PO QID 12/01/18 [History] Ibuprofen [Ibu] 400 mg PO TID PRN 12/01/18 [History] Montelukast [Singulair] 10 mg PO HS 12/01/18 [History] Pantoprazole Sodium [Protonix] 40 mg PO DAILY 12/01/18 [History] Allergy/AdvReac Type Severity Reaction Status Date / Time No Known Allergies Allergy Verified 01/19/16 13:19 Review of Systems Constitutional: Reports: fever, weakness (Myalgia) Eyes: Reports: eye pain Ears, Nose, Throat: Reports: dental pain, congestion, dysphagia Cardiovascular: Denies: chest pain, palpitations Respiratory: Denies: cough, dyspnea, wheezes Gastrointestinal: Denies: abdominal pain, nausea, vomiting Genitourinary female: Denies: urgency Musculoskeletal: Reports: back pain, myalgia Integumentary: Denies: rash Neurological: Reports: headache Psychiatric: Reports: depression, anxiety, other (PTSD) Endocrine: Reports: fatigue Psychiatry Exam - Constitutional Vitals: Temp Pulse Resp BP Pulse Ox 98.6 F 67 16 110/64 97 12/02/18 06:36 12/02/18 06:36 12/02/18 06:36 12/02/18 06:36 12/02/18 06:36 General appearance: disheveled - Musculoskeletal Gait: other (Resting in bed unable to observe) Station: relaxed Strength & Tone: normal for patient - Psychiatric Patient Orientation: Yes Person, Yes Time, Yes Place Level of alertness: Alert Behavior: uncooperative, suspicious Psychomotor activity: Slowed Eye Contact: Fleeting Contact Mood Description: Euthymic/stable Affect description: euthymic Speech Volume: Soft/Quiet Speech pattern: slowed Language & Vocabulary: consistent with education Thought Process: Intact Thought Content: No Suicidal ideation, No Homicidal ideation Perceptual Disturbances: Yes Reacting to internal stimuli, No Auditory hallucinations, No Visual hallucinations Attention Span Ability: Unable to Focus Memory Description: Immediate Impaired Patient Reliability: Questionable Historian Fund of knowledge: Yes average Intelligence Estimate: Average Judgment: Fair Insight: Partial Results - Drug Levels and Toxicology Drug Levels and Toxicology: Drug Levels and Toxicity 12/01/18 12/01/18 12/01/18 11:59 14:25 20:44 Urine Opiates Screen Negative Acetaminophen 40 H < 10 L Ur Barbiturates Screen Negative Ur Phencyclidine Scrn Negative Ur Amphetamines Screen Positive H U Benzodiazepines Scrn Negative Urine Cocaine Screen Negative U Marijuana (THC) Screen Positive H Ethyl Alcohol < 10 - Labs Labs: Laboratory Last Values WBC 9.6 K/mcL (4.3-11.1) 12/02/18 03:54 RBC 4.00 M/mcL (3.82-4.97) 12/02/18 03:54 Hgb 11.6 g/dL (11.5-15.4) 12/02/18 03:54 Hct 33.3 % (35.3-44.9) L 12/02/18 03:54 MCV 83.3 fL (83.0-100.0) 12/02/18 03:54 MCH 29.0 pg (28.0-33.3) 12/02/18 03:54 MCHC 34.8 g/dL (31.6-35.5) 12/02/18 03:54 RDW 11.9 % (11.5-14.5) 12/02/18 03:54 Plt Count 292 K/mcL (140-400) 12/02/18 03:54 MPV 10.7 fL (9.4-12.4) 12/02/18 03:54 Immature Gran % 0.3 % (0-4) 12/02/18 03:54 Seg Neutrophils % 64.0 % 12/02/18 03:54 Lymphocytes % 26.2 % 12/02/18 03:54 Monocytes % 6.6 % 12/02/18 03:54 Eosinophils % 2.2 % 12/02/18 03:54 Basophils % 0.7 % 12/02/18 03:54 Neutrophils # 6.2 K/mcL (1.6-8.9) 12/02/18 03:54 Lymphocytes # 2.5 K/mcL (0.6-4.6) 12/02/18 03:54 Monocytes # 0.6 K/mcL (0.0-1.3) 12/02/18 03:54 Eosinophils # 0.2 K/mcL (0.0-0.6) 12/02/18 03:54 Basophils # 0.1 K/mcL (0.0-0.2) 12/02/18 03:54 Sodium 139 mEq/L (136-145) 12/02/18 03:54 Potassium 3.1 mEq/L (3.5-5.1) L 12/02/18 03:54 Chloride 110 mEq/L (98-107) H 12/02/18 03:54 Carbon Dioxide 19 mEq/L (23-29) L 12/02/18 03:54 BUN 8 mg/dL (6-20) 12/02/18 03:54 Creatinine 0.57 mg/dL (0.60-1.20) L 12/02/18 03:54 Est GFR ( Amer) > 60 (> 60) 12/02/18 03:54 Est GFR (Non-Af Amer) > 60 (> 60) 12/02/18 03:54 BUN/Creatinine Ratio 14 (6-26) 12/02/18 03:54 Glucose 87 mg/dL (70-105) 12/02/18 03:54 Calculated Osmolality 286 (280-300) 12/02/18 03:54 Lactic Acid 1.3 mmol/L (0.5-2.2) 12/01/18 11:59 Calcium 7.9 mg/dL (8.6-10.3) L 12/02/18 03:54 Total Bilirubin 0.8 mg/dL (0.3-1.0) 12/02/18 03:54 Direct Bilirubin 0.1 mg/dL (0.0-0.2) 12/02/18 03:54 Indirect Bilirubin 0.7 mg/dL (0.0-1.2) 12/02/18 03:54 AST 18 Units/L (13-39) 12/02/18 03:54 ALT 11 Units/L (7-52) 12/02/18 03:54 Alkaline Phosphatase 44 Units/L (34-104) 12/02/18 03:54 Serum Total Protein 4.8 g/dL (6.4-8.9) L 12/02/18 03:54 Albumin 3.2 g/dL (3.5-5.7) L 12/02/18 03:54 Globulin 1.6 g/dL (2.4-3.5) L 12/02/18 03:54 Albumin/Globulin Ratio 2.0 (1.1-2.2) 12/02/18 03:54 Urine Color Yellow (Yellow) 12/01/18 14:25 Urine Clarity Clear (Clear) 12/01/18 14:25 Urine pH 6.0 pH Units (5.0-8.0) 12/01/18 14:25 Ur Specific [place] > 1.030 (1.010-1.025) H 12/01/18 14:25 Urine Protein Negative mg/dL (Neg-Trace) 12/01/18 14:25 Urine Glucose (UA) Normal mg/dL (Normal) 12/01/18 14:25 Urine Ketones Trace mg/dL (Negative) H 12/01/18 14:25 Urine Blood Negative (Negative) 12/01/18 14:25 Urine Nitrite Negative (Negative) 12/01/18 14:25 Urine Bilirubin Negative (Negative) 12/01/18 14:25 Urine Urobilinogen Normal mg/dL (Normal) 12/01/18 14:25 Ur Leukocyte Esterase Negative (Negative) 12/01/18 14:25 Urine Test Negative (Negative) 12/01/18 14:25 Salicylates < 2.5 mg/dL (15.0-30.0) L 12/01/18 11:59 Urine Opiates Screen Negative ng/mL (Jhhfdl=887) 12/01/18 14:25 Ur Buprenorphine Scrn Positive ng/mL (Cutoff=5) H 12/01/18 14:25 Acetaminophen < 10 mcg/mL (10-20) L 12/01/18 20:44 Ur Barbiturates Screen Negative ng/mL (Ivyjqi=670) 12/01/18 14:25 Ur Phencyclidine Scrn Negative ng/mL (Cutoff=25) 12/01/18 14:25 Ur Amphetamines Screen Positive ng/mL (Diclxe=2103) H 12/01/18 14:25 U Benzodiazepines Scrn Negative ng/mL (Ioogbq=898) 12/01/18 14:25 Urine Cocaine Screen Negative ng/mL (Cutoff= 300) 12/01/18 14:25 U Marijuana (THC) Screen Positive ng/mL (Cutoff = 50) H 12/01/18 14:25 Ur Drug Screen Interp See Below 12/01/18 14:25 Ethyl Alcohol < 10 mg/dL (Less than 10) 12/01/18 11:59 Chlamy pneumoniae PCR Not Detected (Not Detect) 12/01/18 17:46 Adenovirus (PCR) Not Detected (Not Detect) 12/01/18 17:46 B. pertussis DNA (PCR) Not Detected (Not Detect) 12/01/18 17:46 B.parapertussis DNA PCR Not Detected (Not Detect) 12/01/18 17:46 Coronavirus OC43 (PCR) Not Detected (Not Detect) 12/01/18 17:46 Coronavirus HKU1 (PCR) Not Detected (Not Detect) 12/01/18 17:46 Coronavirus 229E (PCR) Not Detected (Not Detect) 12/01/18 17:46 Coronavirus NL63 (PCR) Not Detected (Not Detect) 12/01/18 17:46 Human Metapneumovir PCR Not Detected (Not Detect) 12/01/18 17:46 Influenza A (H1) PCR Not Detected (Not Detect) 12/01/18 17:46 Influ A (H1N1/09) PCR Not Detected (Not Detect) 12/01/18 17:46 Influenza A (H3) PCR Not Detected (Not Detect) 12/01/18 17:46 Influenza A Untype (PCR) Not Detected (Not Detect) 12/01/18 17:46 Influenza Type B (PCR) Not Detected (Not Detect) 12/01/18 17:46 M.pneumoniae DNA (PCR) Not Detected (Not Detect) 12/01/18 17:46 Parainfluenza 1 (PCR) Not Detected (Not Detect) 12/01/18 17:46 Parainfluenza 2 (PCR) Not Detected (Not Detect) 12/01/18 17:46 Parainfluenza 3 (PCR) Not Detected (Not Detect) 12/01/18 17:46 Parainfluenza 4 (PCR) Not Detected (Not Detect) 12/01/18 17:46 RSV (PCR) Not Detected (Not Detect) 12/01/18 17:46 Entero/Rhino (PCR) Not Detected (Not Detect) 12/01/18 17:46 Consult Discharge Plan - Plan Referrals: NONE,PCP [Primary Care Provider] - - Attending Attestation I examined this patient and my medical decision-making was reviewed with the Resident Physician. I agree with the documented findings, disposition and treatment plan as described except to the extent set forth below. Patient has consistently maintained that taking the additional acetaminophen was due to her fever. She said she had no intention or plan of harming herself. She said once she continued to feel badly she came to the emergency room for help with the fever and abdominal pain. She is glad she is getting the N- acetylcysteine and that she did not hurt herself accidentally with the Tylenol. She denies any active suicidal or homicidal thoughts, ideations, or plans. She is future oriented and wants to be out of the hospital and back with her girlfriend. She denies using buprenorphine or benzodiazepines. She says that her girlfriend uses buprenorphine but she has never taken it and also does not know where the benzodiazepines would have come from. Given the fact that she has no suicidal or homicidal thoughts, ideations, or plans and no psychosis she does not meet criteria for involuntary psychiatric admission. She can continue to follow up outpatient with her mental health team at the [facility]. We did discuss antidepressants as an option but she was not interested at that time and said overall her mood has been doing well. From a psychiatric standpoint she is cleared and from our standpoint can be discharged once she is medically stable. Psychiatry will sign off.
[2018-12-02] MEDS: Potassium Chloride Elixir 20 MEQ/15 ML UDC PO ONE ×2 (10:36→12:59)
[2018-12-02 15:36] VITALS: BP 106/68
--- NOTE | 2018-12-02 18:46 | Discharge Summary ---
Date of Encounter: 12/02/18 Time of Encounter: 18:42 - Discharge Diagnosis (1) Acetaminophen overdose Priority: Primary Status: Acute Qualifiers: Encounter type: initial encounter Injury intent: accidental or unintentional Qualified Code(s): T39.1X1A - Poisoning by 4-Aminophenol derivatives, accidental (unintentional), initial encounter (2) Asthma Priority: Secondary Status: Acute Qualifiers: Qualified Code(s): J45.909 - Unspecified asthma, uncomplicated (3) Hypokalemia Priority: Secondary Status: Acute (4) Polysubstance abuse Priority: Secondary Status: Acute (5) PTSD (post-traumatic stress disorder) Priority: Secondary Status: Chronic Hospital course: Ms. Gomez is a 33 year old female with a past medical history of PTSD, anxiety, depression, and substance abuse disorder who presented to [facility] on 12/01/[facility] from [place] [facility] with body aches, headache, chest pain, shortness of breath, abdominal pain. Patient reported that she had fevers for the last 2 days, and had been consuming a large amount of Tylenol to try to bring her fever down. She reports that over the course of 2 days, she had been taking Tylenol 325 mg every 2-3 hours in attempt to get her fever under control. She denies having any prior episodes to this. She was also complaining of chronic dental pain on the bottom of her teeth. Per ER report, patient has a history of taking too much Xanax. Once Xanax was cut off, she would take Neurontin in the same way, until her mother took away her Neurontin prescription approximately one month ago. Upon arrival, vital signs were within normal limits. Labs showed a low potassium of 3.3, LFTs were within normal limits. Urine toxicology was positive for buprenorphine, amphetamine, and marijuana. Acetaminophen level was elevated at 40. Poison control was contacted from the emergency department, who recommended treatment with N-acetylcysteine for the next 21 hours. Poison control faxed the treatment protocol; 1-2 hours before third bag is done, they advise repeating the LFTs and Tylenol levels; if normal, N-acetylcysteine can stop. She was treated per protocol. LFTs were monitored ad were within normal limits. Repeat Tylenol level was <10. Psychiatry evaluated patient, does not seem intential overdose, no need for inpatient treatment. She was discharged home in stable condition. - Time Spent with Patient Total time spent providing and/or coordinating discharge services: - Discharge Medications Prescriptions: Continued Acetaminophen [Tylenol] 650 mg PO Q8H PRN PRN Reason: Fever/Pain Budesonide/Formoterol 160/4.5 [Symbicort 160/4.5] 2 puff IH BIDR Cetirizine HCl [24Hour Allergy] 10 mg PO DAILY Fluticasone Propionate Nasal [Flonase] 2 spr NS DAILY PRN PRN Reason: Allergy Symptoms Gabapentin [Neurontin] 800 mg PO QID Ibuprofen [Ibu] 400 mg PO TID PRN PRN Reason: Pain Montelukast [Singulair] 10 mg PO HS Pantoprazole Sodium [Protonix] 40 mg PO DAILY Home Medications: Acetaminophen [Tylenol] 650 mg PO Q8H PRN 12/01/18 [History] Budesonide/Formoterol 160/4.5 [Symbicort 160/4.5] 2 puff IH BIDR 12/01/18 [History] Cetirizine HCl [24Hour Allergy] 10 mg PO DAILY 12/01/18 [History] Fluticasone Propionate Nasal [Flonase] 2 spr NS DAILY PRN 12/01/18 [History] Gabapentin [Neurontin] 800 mg PO QID 12/01/18 [History] Ibuprofen [Ibu] 400 mg PO TID PRN 12/01/18 [History] Montelukast [Singulair] 10 mg PO HS 12/01/18 [History] Pantoprazole Sodium [Protonix] 40 mg PO DAILY 12/01/18 [History] Allergies/Adverse Reactions: Allergy/AdvReac Type Severity Reaction Status Date / Time No Known Allergies Allergy Verified 01/19/16 13:19 Date of admission: 12/01/18 15:58 Primary care physician: PCP NONE Consults: 12/01/18 17:30 Consult to Psychiatry [CONS] Routine Consulting Provider: Psychiatry [facility] Reason consult: Other Other reason and/or additional details: presents with acetaminophen overdose; denies SI, but has documented history of anxiety, depression, PTSD, and polysubstance abuse Call Completed: No Consult to Ride Attendant [CONS] Routine Reason for SW Consult: history of polysubstance abuse Discharging clinician: Darlene Duncan - Constitutional Vitals: Temp Pulse Resp BP Pulse Ox 98.6 F 70 16 106/68 99 12/02/18 15:35 12/02/18 15:35 12/02/18 15:35 12/02/18 15:35 12/02/18 15:35 Exam: General: Pt was found laying asleep in bed with the covers past her head this morning. She was alert and cooperative with the exam on awakening. She is no apparent distress and answers all questions appropriately. HEENT: Normocephalic, neck supple and trachea midline Heart: RRR, without any murmurs, rubs or gallops Lungs: CTA bilaterally without any wheezing or rhonchi Abd: Normal active bowel sounds x 4 quadrants, soft, non distended, non tender to palpation Ext: No LE edema - Patient Status Disposition: Home, Self-Care Condition: Good Functional capacity at discharge: independent ambulation Overall status at discharge: patient is back to baseline - Discharge Instructions Follow Up With: NONE,PCP [Primary Care Provider] - - Diet and Activity Activity: increase activity as tolerated Diet: advance to your usual diet
== END 2018-12-02 19:49 | disposition home or self-care (01) | DRG 918 ==
LOC: 3BNU 11:29 → EMEROOARM 11:29 → SUATTDRO 14:27 → 3BNU 15:18
PROVIDERS: ADMIT Internal Medicine; ATTEND Student in an Organized Health Care Education/Training Program